=== PATIENT | female | born 2000 | race Caucasian/White ===

== ENCOUNTER 2019-03-29 09:38 | Emergency (ER) | payer SELFPAY ==
[~2019-03-29] VITALS: Ht 154.9 cm; Wt 48.3 kg
[2019-03-29 09:48] VITALS: BP 125/79
[2019-03-29 11:11] VITALS: BP 104/68
== END 2019-03-29 11:11 | disposition home or self-care (01) ==
LOC: MED 09:38
DX: J02.9 Acute pharyngitis, unspecified (principal)
CPT/HCPCS: 87081; 99283

== ENCOUNTER 2021-04-26 17:14 | Emergency (ER) | payer OTHER, SELFPAY ==
[~2021-04-26] VITALS: Ht 154.9 cm; Wt 55.8 kg
[2021-04-26 17:30] VITALS: BP 105/68
--- NOTE | 2021-04-26 17:34 | NUR ---
TENT 1
[2021-04-26] MEDS ORDERED: PROM473S5 PO (18:07)
[2021-04-26] MEDS ORDERED: ACET-10509 PO (18:07)
--- NOTE | 2021-04-26 18:25 | NUR ---
no nursing interventions given
--- NOTE | 2021-04-26 18:25 | NUR ---
santi novel swab collected and walked over to lab
--- NOTE | 2021-04-26 18:25 | NUR ---
Patient discharged with v/s stable. Written and verbal after care instructions given and explained. Patient alert, oriented and verbalized understanding of instructions. Ambulatory with steady gait. All questions addressed prior to discharge. ID band removed. Patient advised to follow up with PMD. Rx of acetaminophen and promethazine-dm given. Patient educated on indication of medication including possible reaction and side effects. Opportunity to ask questions provided and answered.
[2021-04-26 18:26] VITALS: BP 105/68
== END 2021-04-26 18:25 | disposition home or self-care (01) ==
LOC: MED 17:14
DX: J06.9 Acute upper respiratory infection, unspecified (principal); Z20.822 Contact with and (suspected) exposure to COVID-19; Z01.84 Encounter for antibody response examination; Z79.899 Other long term (current) drug therapy
CPT/HCPCS: 99283; U0003

== ENCOUNTER 2021-07-04 19:44 | Emergency (ER) | payer OTHER, SELFPAY ==
[~2021-07-04] VITALS: Ht 154.9 cm; Wt 54.9 kg
[~2021-07-04 19:44] MED LIST: ACET-10509 PO; PROM473S5 PO
[2021-07-04 20:08] VITALS: BP 124/63
[2021-07-04] MEDS ORDERED: NACL 0.9% 1,000 ML IV ONE ×2 (20:25→21:50)
--- NOTE | 2021-07-04 20:51 | NUR ---
patient ambulated to bed 4
[2021-07-04 21:25] LABS: BASOPHILS # (AUTO) 0.1 K/uL (0.00-0.22); BASOPHILS % (AUTO) 0.7 % (0.0-2.0); EOSINOPHILS # (AUTO) 0.1 K/uL (0-0.4); EOSINOPHILS % (AUTO) 2.2 % (0.0-4.0); HEMATOCRIT 43.3 % (36-48); HEMOGLOBIN 15.1 g/dL (12.0-16.0); LYMPHOCYTES # (AUTO) 2.3 K/uL (2.5-16.5); LYMPHOCYTES % (AUTO) 34.1 % (20.5-51.1); MEAN CORPUSCULAR HEMOGLOBIN 30 pg (27-31); MEAN CORPUSCULAR HGB CONC 35 g/dL (33-37); MEAN CORPUSCULAR VOLUME 86.6 fL (80-94); MONOCYTES # (AUTO) 0.5 K/uL (0.8-1.0); MONOCYTES % (AUTO) 7.5 % (1.7-9.3); NEUTROPHILS # (AUTO) 3.8 K/uL (1.8-7.7); NEUTROPHILS % (AUTO) 55.5 % (42.2-75.2); PLATELET COUNT (AUTO) 323 K/uL (140-450); WHITE BLOOD COUNT (AUTO) 6.9 K/uL (4.8-10.8)
[2021-07-04 21:51] LABS: ALBUMIN 4.5 g/dL (3.4-5.0); ANION GAP 18.9 (8-16); CARBON DIOXIDE 22.5 mmol/L (21-32); CREATININE 0.7 mg/dL (0.6-1.3); FREE T4 (FREE THYROXINE) 0.92 ng/dL (0.76-1.46); POTASSIUM 3.4 mmol/L (3.5-5.1); THYROID STIMULATING HORMONE 1.28 uIU/mL (0.34-3.74); TOTAL BILIRUBIN 0.4 mg/dL (0.0-1.0)
--- NOTE | 2021-07-04 22:21 | NUR ---
patient ambulated to the bathroom for urine collection
[2021-07-04 22:30] VITALS: BP 116/70
--- NOTE | 2021-07-04 22:30 | NUR ---
Patient discharged with v/s stable. Written and verbal after care instructions given and explained. Patient verbalized understanding. Ambulatory with steady gait. ID band removed. All questions addressed prior to discharge. Advised to follow up with PMD.
--- NOTE | 2021-07-04 22:30 | NUR ---
isaura tan d/c IV on pt
--- NOTE | 2021-07-04 22:30 | NUR ---
KATELYNN Tan d/c patient. KATELYNN tan aware of HR over 100. Comfortable sending patient home.
== END 2021-07-04 20:23 | disposition home or self-care (01) ==
LOC: MED 19:44
DX: R00.2 Palpitations (principal); F41.9 Anxiety disorder, unspecified; Z79.899 Other long term (current) drug therapy
CPT/HCPCS: 36415; 80053; 84439; 84443; 85025; 93005; 96360; 99284; J7030

== ENCOUNTER 2022-10-16 19:30 | Emergency (ER) | payer OTHER ==
[~2022-10-16] VITALS: Ht 154.9 cm; Wt 54.4 kg
[2022-10-16 19:50] VITALS: BP 130/74
--- NOTE | 2022-10-16 19:53 | NUR ---
TO LOBBY A/W BED AMBULATORY
--- NOTE | 2022-10-16 20:23 | NUR ---
PT CALLED FROM INSIDE LOBBY AND OUTSIDE FOR EKG, NO RESPONSE
--- NOTE | 2022-10-16 22:41 | NUR ---
PT CALLED ON PERSONAL PHONE, NO ANSWER
== END 2022-10-16 22:41 | disposition left against medical advice (07) ==
LOC: MED 19:30
DX: R06.02 Shortness of breath (principal); Z53.21 Procedure and treatment not carried out due to patient leaving prior to being seen by health care provider
CPT/HCPCS: 99281

== ENCOUNTER 2023-02-23 21:21 | Emergency (ER) | payer OTHER ==
[~2023-02-23] VITALS: Ht 154.9 cm; Wt 55.8 kg
[2023-02-23 21:45] VITALS: BP 106/55; PULSE 81; RESP 20; TEMP 98.3; O2SAT 98
--- NOTE | 2023-02-23 21:57 | NUR ---
pt went to lobby
--- NOTE | 2023-02-23 22:22 | NUR ---
PT TO BED 08
--- NOTE | 2023-02-23 22:28 | NUR ---
Dr. Wilkins examining patient.
[2023-02-23 22:50] LABS: BASOPHILS # (AUTO) 0.1 K/uL (0.00-0.22); BASOPHILS % (AUTO) 0.6 % (0.0-2.0); EOSINOPHILS # (AUTO) 0.1 K/uL (0-0.4); EOSINOPHILS % (AUTO) 1.4 % (0.0-4.0); HEMATOCRIT 38.6 % (36-48); HEMOGLOBIN 13.5 g/dL (12.0-16.0); LYMPHOCYTES # (AUTO) 2.4 K/uL (2.5-16.5); LYMPHOCYTES % (AUTO) 23.8 % (20.5-51.1); MEAN CORPUSCULAR HEMOGLOBIN 30 pg (27-31); MEAN CORPUSCULAR HGB CONC 35 g/dL (33-37); MEAN CORPUSCULAR VOLUME 86.4 fL (80-94); MONOCYTES # (AUTO) 0.6 K/uL (0.8-1.0); MONOCYTES % (AUTO) 5.9 % (1.7-9.3); NEUTROPHILS # (AUTO) 6.8 K/uL (1.8-7.7); NEUTROPHILS % (AUTO) 68.3 % (42.2-75.2); PLATELET COUNT (AUTO) 286 K/uL (140-450); RED BLOOD CELL COUNT(AUTO) 4.47 MIL/uL (4.20-5.40); RED CELL DISTRIBUTION WIDTH 13.5 % (11.6-13.7)
--- NOTE | 2023-02-23 23:02 | NUR ---
22 Y/O F bib self form home with boyfriend bedside C/C of abcess on L armpit [id number] with 4/10 pain radiating to L arm down to L wrist with numbness and tingling x 3weeks.pt stated she took ibuprofen with little to no relief. pt A&Ox4, skin intact, ambulatory. pmh- pt denies NKA
[2023-02-23 23:04] LABS: ALBUMIN 4.1 g/dL (3.4-5.0); ANION GAP 12.5 (8-16); CARBON DIOXIDE 26.9 mmol/L (21-32); CREATININE 0.7 mg/dL (0.6-1.3); POTASSIUM 3.4 mmol/L (3.5-5.1); TOTAL BILIRUBIN 0.4 mg/dL (0.0-1.0)
--- NOTE | 2023-02-24 00:05 | NUR ---
Dr. Wilkins bedside examining pt
--- NOTE | 2023-02-24 00:30 | NUR ---
Patient discharged with v/s stable. Written and verbal after care instructions given and explained. Patient verbalized understanding. Ambulatory with steady gait. All questions addressed prior to discharge. Advised to follow up with PMD.
== END 2023-02-24 00:30 | disposition home or self-care (01) ==
LOC: MED 21:21
DX: R22.32 Localized swelling, mass and lump, left upper limb (principal); Z79.899 Other long term (current) drug therapy
CPT/HCPCS: 36415; 71045; 80053; 85025; 99284; Q0092

== ENCOUNTER 2023-08-29 16:31 | Emergency (ER) | payer OTHER ==
[~2023-08-29] VITALS: Ht 154.9 cm; Wt 55.8 kg
[2023-08-29 16:35] VITALS: BP 133/77; PULSE 104; RESP 18; TEMP 98.1; O2SAT 99
[2023-08-29] MEDS ORDERED: ACET-503 PO (17:58)
[2023-08-29] MEDS ORDERED: IBUP-2213 PO (17:58)
[2023-08-29] MEDS ORDERED: NACL 0.9% 1,000 ML IV ONE (18:25)
[2023-08-29] MEDS ORDERED: KETOROLAC 30 MG/ML VIAL IVP ONE (18:25)
[2023-08-29 19:05] VITALS: BP 133/77; PULSE 104; RESP 18; TEMP 98.1; O2SAT 99
== END 2023-08-29 19:05 | disposition home or self-care (01) ==
LOC: MED 16:31
DX: R51.9 Headache, unspecified (principal); Z79.899 Other long term (current) drug therapy
CPT/HCPCS: 70450; 81002; 81025; 99284

== ENCOUNTER 2024-05-05 15:35 | Emergency (ER) | payer OTHER ==
[~2024-05-05] VITALS: Ht 154.9 cm; Wt 54.4 kg
[~2024-05-05 15:35] MED LIST changes: -ACET-10509 PO; +ACET-503 PO; +ACET500T99 PO; +IBUP-2213 PO
[2024-05-05 16:04] VITALS: BP 108/66; PULSE 120; RESP 18; TEMP 99.8; O2SAT 100
[2024-05-05] MEDS ORDERED: MIRABULK PO (16:52)
[2024-05-05] MEDS ORDERED: HYDR25SU91 RC (16:52)
== END 2024-05-05 16:59 | disposition home or self-care (01) ==
LOC: MED 15:35
DX: K64.8 Other hemorrhoids (principal); R11.0 Nausea; R50.9 Fever, unspecified; Z79.899 Other long term (current) drug therapy
CPT/HCPCS: 99283